=== PATIENT | female | born 1985 | race Caucasian/White ===

== ENCOUNTER 2023-01-04 07:45 | Emergency (ER) | payer OTHER ==
[2023-01-04 08:00] VITALS: BP 119/67
--- NOTE | 2023-01-04 08:32 | ED Physician Documentation ---
History of Present Illness - Stated complaint Stated Complaint: NUMB LF LEG/ARM - Chief complaint Chief Complaint: Neuro - History obtained from History obtained from: Patient - Additonal information Additional information: Patient is a 37-year-old female presenting for evaluation of numbness in her left arm and left leg. She woke up in the middle the night feeling numbness in her left leg but reports she was able to move it around. She started doing some stretching and it seemed to improve. She went back to bed. She woke up around 6:00 again and took her dogs out. As she came back into bed her left leg started to feel numb again. She reports feeling a discomfort on the lateral aspect of the leg.That lasted approximately 1 hour. She also had a period where she felt numbness in her left arm. She does report laying on her left side while sleeping and noticed this while she was in her bed.That numbness has also resolved. She states that while she was feeling the numbness she was able to move her arm and her leg without any difficulties and denies noticing any issues with her strength. She denies any neck or back pain. Denies recent injury or trauma. Denies bowel or bladder incontinence. She has been doing More walking recently. She has also been doing a lot of fascial stretching exercises involving her arms and legs.She does report a episode in the past where she felt some numbness in her left leg that also resolved after a short amount of time.She denies any headache, trouble with speech or swallowing, weakness in her arms or legs, numbness to her torso, concern for , use of blood thinners. Review of Systems Constitutional: denies: Fever Cardiac: denies: Chest pain / pressure Respiratory: denies: Dyspnea GI: denies: Abdominal Pain, Vomiting : denies: Dysuria Musculoskeletal: denies: Back pain, Extremity pain Neurologic: reports: Numbness. denies: Focal weakness, Difficulty speaking, Headache, Head injury PD PAST MEDICAL HISTORY - Present Medications Home Medications: Ambulatory Orders Medication Instructions Recorded Confirmed Ibuprofen [Advil] 600 mg PO Q6H PRN #30 tablet 01/04/23 predniSONE [Deltasone] 40 mg PO DAILY 5 Days #10 tablet 01/04/23 - Allergies Allergies/Adverse Reactions: Allergies Allergy/AdvReac Type Severity Reaction Status Date / Time amoxicillin AdvReac Rash Verified 01/04/23 08:01 clarithromycin AdvReac Rash Verified 01/04/23 08:01 PD ED PE NORMAL - General General: Alert and oriented X 3, No acute distress, Well developed/nourished - HEENT HEENT: Atraumatic, PERRL, EOMI, Moist mucous membranes, Pharynx benign - Neck Neck: Supple, no meningeal sign, No bony TTP - Cardiac Cardiac: RRR - Respiratory Respiratory: No respiratory distress, Clear bilaterally - Abdomen Abdomen: Normal bowel sounds, Soft, Non tender, Non distended - Back Back: No spinal TTP - Derm Derm: Warm and dry - Extremities Extremities: No tenderness to palpate, Normal ROM s pain, No edema - Neuro Neuro: Alert and oriented X 3, battery installer 2-12 intact, No motor deficit, Normal speech, Other (Normal unassisted gait). No: No sensory deficit (Reports mild numbness sensation to region of her left forearm as well as in the left lateral thigh And wrapping around her leg towards her great toe) Eye Opening: Spontaneous Motor: Obeys Commands Verbal: Oriented GCS Score: 15 Results - Vitals Vitals: Vital Signs - 24 hr 01/04/23 07:51 Temperature 36.6 C Heart Rate 83 Respiratory 16 Rate Blood Pressure 119/67 O2 Saturation 100 Oxygen O2 Source Room air PD Medical Decision Making - ED course ED course: Patient is a 37-year-old presenting for evaluation of numbness in her left arm and left leg since this morning with no other deficits noted. On exam she has normal strength In all extremities. She does have Regions of paresthesia to her left forearm as well as to her left leg.Given the distribution of her symptoms I feel that this is likely peripheral symptoms as she does not have risk factors for stroke and does not have other symptoms To suggest a central process such as motor weakness. She has no paresthesias over her trunk. The entire ex tremities are also not affected. She is ambulatory. Her symptoms also do not suggest other etiologies such as a transverse myelitis. Distal pulses are all intact with no signs of vascular compromise.No bony tenderness to suggest other injury. No symptoms to suggest cord compression. Patient was counseled on plan for supportive care with anti-inflammatories and a short course of steroids And need for close follow-up with her PCP. She is also advised on strict return precautions for any new or worsening symptoms. Departure - Departure Disposition: 01 Home, Self Care Clinical Impression: Radiculopathy affecting upper extremity, Radiculopathy with lower extremity symptoms Condition: Stable Instructions: ED Sciatica, ED Paraesthesias Prescriptions: Ibuprofen [Advil] 600 mg PO Q6H PRN #30 tablet PRN Reason: Pain 1-4 predniSONE [Deltasone] 40 mg PO DAILY 5 Days #10 tablet Comments: I believe your symptoms this morning in your arm and leg are from inflammation/irritation around 2 separate nerves Because there are very specific areas of your arm and leg that appear to be Affected. I am going to recommend a short course of steroids as well as anti-inflammatory medication to See if this relieves your symptoms. I would also be cautious with any physical activity or stretching movements that may further irritate these areas. However if it anytime you develop any worsening symptoms such as trouble with strength or controlling your arm or leg, headache, trouble controlling your bowel or bladder function or have any new concerns please return to the emergency department. Otherwise I would recommend close follow-[facility] I am sending your prescriptions to [facility] in [place]. Discharge Date/Time: 01/04/23 08:43
== END 2023-01-04 08:43 | disposition home or self-care (01) ==
LOC: ED 07:45
DX: M54.10 Radiculopathy, site unspecified (principal)
CPT/HCPCS: 99282; 99283

== ENCOUNTER 2023-01-13 12:55 | Emergency (ER) | payer OTHER ==
--- NOTE | 2023-01-13 13:33 | ED Physician Documentation ---
History of Present Illness - Stated complaint Stated Complaint: LT LEG PX - Chief complaint Chief Complaint: Ext Problem - History obtained from History obtained from: Patient - History of Present Illness Timing: How many weeks ago (2) Pain level max: 0 Pain level now: 0 - Additonal information Additional information: Patient is a 37-year-old female who presents to the emergency department stating that over the past 2 weeks she has had intermittent numbness to the left leg and left face. She states that it is mainly on the sole of the foot and lateral aspect of the left lower extremity. She states occasionally it does radiate up to the mid to upper thigh. Occasionally she feels it on the front of the leg as well. She is not having difficulty walking. She was seen here about 2 [place] "blood work and x-rays" performed. She states that her PCM told her to come to the emergency department for "MRI". She is not having any loss of bowel or bladder control. No headaches. No trauma. No IV drug use. No fevers. Nothing makes it better or worse. Review of Systems Constitutional: denies: Fever, Chills Respiratory: denies: Cough GI: denies: Abdominal Pain, Nausea, Vomiting, Diarrhea : denies: Dysuria Musculoskeletal: denies: Neck pain, Back pain Neurologic: denies: Generalized weakness, Focal weakness, Confused, Headache, Head injury, LOC PD PAST MEDICAL HISTORY - Past Medical History Past Medical History: No Cardiovascular: None Respiratory: None Neuro: None Endocrine/Autoimmune: None GI: None DISPATCHER MAINTENANCE: None : None HEENT: None Psych: None Musculoskeletal: None Derm: None - Past Surgical History Past Surgical History: Yes /DISPATCHER MAINTENANCE: Breast reduction, Other HEENT: Other - Present Medications Home Medications: Ambulatory Orders Medication Instructions Recorded Confirmed Ibuprofen [Advil] 600 mg PO Q6H PRN #30 tablet 01/04/23 01/13/23 - Allergies Allergies/Adverse Reactions: Allergies Allergy/AdvReac Type Severity Reaction Status Date / Time amoxicillin AdvReac Rash Verified 01/13/23 13:01 clarithromycin AdvReac Rash Verified 01/13/23 13:01 - Social History Does the pt smoke?: No Smoking Status: Never smoker Does the pt drink ETOH?: Yes Does the pt have substance abuse?: Yes Substance Use and Type: CBD oil / Products - Immunizations Immunizations are current?: Yes PD ED PE NORMAL - Vitals Vital signs reviewed: Yes - General General: Alert and oriented X 3, No acute distress - HEENT HEENT: Moist mucous membranes - Neck Neck: Supple, no meningeal sign - Cardiac Cardiac: RRR, Strong equal pulses - Respiratory Respiratory: No respiratory distress, Clear bilaterally - Abdomen Abdomen: Soft, Non tender, Non distended - Back Back: No CVA TTP, No spinal TTP - Derm Derm: Warm and dry - Extremities Extremities: No edema, No calf tenderness / cord - Neuro Neuro: Alert and oriented X 3, pick up driver 2-12 intact, No motor deficit, Other (Mild decrease sensation on the sole of the foot and lateral aspect of the left lower extremity. Otherwise normal neurological exam. Normal reflexes BLE. No saddle anesthesia. normal great toe extension B. ) Eye Opening: Spontaneous Motor: Obeys Commands Verbal: Oriented GCS Score: 15 - Psych Psych: Normal mood, Normal affect Results - Vitals Vitals: Vital Signs - 24 hr 01/13/23 01/13/23 13:01 16:30 Temperature 36.5 C Heart Rate 81 76 Respiratory 16 16 Rate Blood Pressure 130/66 120/72 O2 Saturation 100 98 Oxygen O2 Source Room air - Rads (name of study) Brain MRI without Relevant Findings:: Final report received, See rad report Lumbar spine MRI without Relevant Findings:: Final report received, See rad report PD Medical Decision Making - ED course Complexity details: reviewed results, re-evaluated patient, considered differential, d/w patient, d/w family ED course: No acute findings on lumbar spine or brain MRI. Ambulating without difficulty. She had blood work earlier today with her doctor. She will follow-up with her doctor for further evaluation of her paresthesias. No indication for further work-up in the emergency department at this time. No emergency medical condition. Patient counseled regarding signs and symptoms for which I believe and urgent re-evaluation would be necessary. Patient with good understanding of and agreement to plan and is comfortable going home at this time This document was made in part using voice recognition software. While efforts are made to proofread this document, sound alike and grammatical errors may occur. Departure - Departure Disposition: 01 Home, Self Care Clinical Impression: Paresthesia Condition: Good Instructions: ED Paraesthesias Follow-Up: RUBÉN ACOSTA ARNP [Primary Care Provider] - Within 3 Days Comments: The MRI of your brain and spine did not show any significant acute abnormalities. The reads are below. Please follow-up with your doctor for further care. The cause of your symptoms is unclear, recommend that you follow- up with your doctor for results of your laboratory testing that was performed today [place] [facility] [employer] [facility]. They may want to refer you to a neurologist for further evaluation. MRI L Spine EXAM: MRI/LUMBWO ([id number]) PROCEDURE: LUMBAR SPINE WO INDICATIONS: L LE intermittent numbness x 2 weeks TECHNIQUE: Noncontrast sagittal T1 spin echo and T2 fast echo, sagittal STIR, axial T1 and T2 fast spin echo through the lumbar spine. In cases with scoliosis, additional coronal T2 fast spin echo may be performed. COMPARISON: None. FINDINGS: Image quality: Excellent. Alignment and Curvature: There is normal bony alignment. Bone Marrow: Marrow is of normal overall signal. No acute vertebral body compression fractures. Spinal Cord: Conus medullaris terminates at the L1 level. Visualized cord demonstrates normal signal and size. Paraspinous Soft Tissues: No paravertebral masses. T12-L1: No significant neuroforaminal or spinal canal stenosis. L1-L2: No significant neuroforaminal or spinal canal stenosis. L2-L3: No significant neuroforaminal or spinal canal stenosis. L3-L4: Mild bilateral facet arthropathy and ligamentum flavum hypertrophy.No significant neuroforaminal or spinal canal stenosis. L4-L5: Minimal symmetric disc bulge. Moderate bilateral facet arthropathy. Minimal bilateral neuroforaminal stenosis. No significant spinal canal stenosis. L5-S1: No significant neuroforaminal or spinal canal stenosis. IMPRESSION: Lumbar spine without acute findings. Multilevel mid and lower lumbar spondylitic changes without significant neuroforaminal or spinal canal stenosis. Findings are most pronounced at L3-4 and L4-5 as described above. MRI BRAIN: EXAM: MRI/BRWO ([id number]) PROCEDURE: BRAIN WO INDICATIONS: L LE intermittent numbness x 2 weeks, L facial num TECHNIQUE: Noncontrast axial T1 spin echo, axial T2 fast spin echo, sagittal and axial FLAIR, coronal T2 fast spin echo, axial gradient echo, axial diffusion and ADC through the brain. COMPARISON: None. FINDINGS: Image quality: Excellent. CSF Spaces: Basal cisterns are patent. No extra-axial fluid collections. Ventricles are normal in size and shape. Brain: No intracranial masses or hemorrhage. Gonzalez/white matter interface is normal. Brainstem appears normal. Diffusion-weighted images demonstrate no acute ischemic insult. No chronic ischemic insults. Normal intravascular flow voids are present. Skull and face: Calvarium has normal marrow signal. Orbits appear normal. Sinuses: Sinuses and mastoids are clear. IMPRESSION: 1. No acute cranial abnormality. A cause for left facial and lower extremity numbness is not identified. Discharge Date/Time: 01/13/23 16:30
--- NOTE | 2023-01-13 15:55 | MRI Report ---
PROCEDURE: BRAIN WO INDICATIONS: L LE intermittent numbness x 2 weeks, L facial num TECHNIQUE: Noncontrast axial T1 spin echo, axial T2 fast spin echo, sagittal and axial FLAIR, coronal T2 fast sp in echo, axial gradient echo, axial diffusion and ADC through the brain. COMPARISON: None. FINDINGS: Image quality: Excellent. CSF Spaces: Basal cisterns are patent. No extra-axial fluid collections. Ventricles are normal in size and shape. Brain: No intracranial masses or hemorrhage. Gonzalez/white matter interface is normal. Brainstem appe ars normal. Diffusion-weighted images demonstrate no acute ischemic insult. No chronic ischemic ins ults. Normal intravascular flow voids are present. Skull and face: Calvarium has normal marrow signal. Orbits appear normal. Sinuses: Sinuses and mastoids are clear. IMPRESSION: 1. No acute cranial abnormality. A cause for left facial and lower extremity numbness is not identifi ed. Reviewed by: Patrick Perales MD on 01/13/2023 3:53 PM PDT Approved by: Patrick Perales MD on 01/13/2023 3:53 PM PDT Station ID: [id number]
--- NOTE | 2023-01-13 16:01 | MRI Report ---
PROCEDURE: LUMBAR SPINE WO INDICATIONS: L LE intermittent numbness x 2 weeks TECHNIQUE: Noncontrast sagittal T1 spin echo and T2 fast echo, sagittal STIR, axial T1 and T2 fast spin echo thr ough the lumbar spine. In cases with scoliosis, additional coronal T2 fast spin echo may be performe d. COMPARISON: None. FINDINGS: Image quality: Excellent. Alignment and Curvature: There is normal bony alignment. Bone Marrow: Marrow is of normal overall signal. No acute vertebral body compression fractures. Spinal Cord: Conus medullaris terminates at the L1 level. Visualized cord demonstrates normal signa l and size. Paraspinous Soft Tissues: No paravertebral masses. T12-L1: No significant neuroforaminal or spinal canal stenosis. L1-L2: No significant neuroforaminal or spinal canal stenosis. L2-L3: No significant neuroforaminal or spinal canal stenosis. L3-L4: Mild bilateral facet arthropathy and ligamentum flavum hypertrophy.No significant neuroforam inal or spinal canal stenosis. L4-L5: Minimal symmetric disc bulge. Moderate bilateral facet arthropathy. Minimal bilateral neurof oraminal stenosis. No significant spinal canal stenosis. L5-S1: No significant neuroforaminal or spinal canal stenosis. IMPRESSION: Lumbar spine without acute findings. Multilevel mid and lower lumbar spondylitic changes without significant neuroforaminal or spinal qi l stenosis. Findings are most pronounced at L3-4 and L4-5 as described above. Reviewed by: Kuldip White MD on 01/13/2023 4:00 PM PDT Approved by: Kuldip White MD on 01/13/2023 4:00 PM PDT Station ID: [id number]
[2023-01-13 16:30] VITALS: BP 120/72
== END 2023-01-13 16:30 | disposition home or self-care (01) ==
LOC: ED 12:55
DX: R20.0 Anesthesia of skin (principal)
CPT/HCPCS: 99283; 99284